=== PATIENT | female | born 1945 | race Caucasian/White ===

== ENCOUNTER 2024-09-14 20:36 | Observation (INO) | payer MEDICARE, SELFPAY ==
[2024-09-14 15:29] VITALS: BP 133/90
--- NOTE | 2024-09-14 16:12 | ED.CVA ---
History of Present Illness
General
Chief Complaint: CVA/TIA Symptoms
Source: patient
Exam Limitations: none
Time Seen by Provider: 09/14/24 16:02
Nursing documentation reviewed up to this point in time: agreed with
Onset of Stroke Symptoms
Onset of symptoms known: Yes
Date of onset of symptoms: 09/13/24
History of Present Illness
History of Present Illness:
79 -year-old female presents to the emergency department due to loss of vision in her left eye, with vision totally black for about 4 minutes. She was at a store, and went outside the vision gradually returned.
Past History
Past History
ED Past Medical History: Cancer (Breast cancer), HTN and Hypercholesterolemia
ED Past Surgical History: Other (Lumpectomy, breast reduction, oral surgery)
Social History
Tobacco: Non-smoker
Alcohol: None
Drug: None
Personal:
Review of Systems
Review of Systems
Allergies reviewed?: Yes
All Other Systems: Not applicable
Constitutional: Reports no symptoms
EENT: Reports other (Left eye vision loss)
Respiratory: Reports no symptoms
Cardiac: Reports no symptoms
ABD/GI: Reports no symptoms
: Reports no symptoms
Musculoskeletal: Reports no symptoms
Skin: Reports no symptoms
Neurological: Reports no symptoms
Endocrine: Reports no symptoms
Hematologic/Lymphatic: Reports no symptoms
Psychiatric: Reports no symptoms
Phy Exam
Physical Exam
Physical Exam:
Physical Exam
General: no apparent distress, not acutely ill
Neck: supple. no meningeal signs. normal posterior pharynx
Heart: s1/s2 regular rate and rhythm, no murmur. equal radial
pulses.
HEENT: Pupils equal round reactive to light, EOMI
Lungs: no acute respiratory distress. clear bilaterally
Abdomen: normal bowel sounds. not tender. no CVAT
Neuro: alert and oriented. no focal neurological deficits cranial nerves II through XII intact
Skin: no rash
Psychiatric: well kept. interactive and cooperative
Extremities: no edema. no calf tenderness. negative homans. good distal pulses
NIH Stroke Score
Level of Consciousness: 0 - Alert
LOC questions: 0-Answers both correctly
LOC Commands: 0-Performs both correctly
Best Gaze: 0-Normal
Visual Shah: 0=Normal, no visual loss
Facial palsy: 0=Normal, symmetrical
Motor - Right Arm: 0=No drift 10 seconds
Motor - Left Arm: 0=No drift 10 seconds
Motor - Right Le-No drift 5 seconds
Motor - Left Le-No drift 5 seconds
Limb Ataxia: 0-Absent
Sensation: 0-Normal
Best Language: 0-No aphasia
Dysarthria: 0-Normal
Extinction and Inattention: 0-No abnormality
Total Score:: 0
Alteplase Contraindication
Reasons for NON-Treatment with Thrombolytics: Rapid improvement
Lokesh Coma Scale
Eye Opening: Spontaneous
Verbal Response: Oriented
Motor Response: Obeys Commands
GCS Total Score: 15
Course
Orders/Labs/Results
Orders:
Orders
09/14/24 16:02
CT Head W/o Iv Contrast Urgent
Comment:
Reason For Exam: left eye vision changes
Cardiac Monitoring- Treatment ONCE
Pulse Ox/cont/shift [RESP] Stat
Quantity: 1
09/14/24 16:04
Electrocardiogram (*1) Stat
Reason for Study: Other
Other Reason for Exam: neuro symptoms
EKG- Treatment ONCE
IV Insert/Care/Rem.- Treatment PRN
09/14/24 16:27
Complete Blood Count/With Diff Urgent
Comprehensive Metabolic Panel Urgent
PTT Urgent
Prothrombin Time Urgent
Abnormal Lab Results
09/14/24
16:27
WBC 2.5 L 10^3/uL
(4.8-10.8)
RBC 3.76 L 10^6/uL
(4.20-5.40)
MCV 106.4 H fL
(81.0-99.0)
MCH 37.0 H pg
(27.0-31.0)
Plt Count 63 L 10^3/uL
(130-400)
Absolute Neuts (auto) 1.3 L 10^3/uL
(1.4-6.5)
Absolute Lymphs (auto) 0.9 L 10^3/uL
(1.2-3.4)
Chloride 112 H mmol/L
(98-107)
09/14/24 16:27
09/14/24 16:27
Vital Signs
Initial and Last Documented VS:
Initial Vital Signs
Temp Pulse Resp BP Pulse Ox
97.9 F 106 15 133/90 98
09/14/24 15:29 09/14/24 15:29 09/14/24 15:29 09/14/24 15:29 09/14/24 15:29
Last Documented Vital Signs
Temp Pulse Resp BP Pulse Ox
98.5 F 103 21 136/92 96
09/14/24 18:30 09/14/24 18:30 09/14/24 18:30 09/14/24 18:30 09/14/24 18:30
MDM/Problems Addressed
Differential Diagnosis Includes:
CVA, intracranial hemorrhage
MDM/Problems Addressed:
79-year-old female with amaurosis fugax, TIA. Patient took aspirin today. Admit to hospitalist for further workup. CT head no acute findings. No current neurologic deficits. TNK not indicated.
Chronic conditions affecting care: HTN
*Radiology
Radiology exam reviewed: radiology read reviewed (CT head no acute findings)
*Pulse Oximetry
Patient hypoxic: no
*EKG
Interpreted by ED Provider?: Yes
EKG Intrepretation Date: 09/14/24
EKG Intrepretation Time: 16:16
Interpretation: abnormal
Comparison EKG: no comparison EKG present
Heart Rate: 82
Rate: normal
Rhythm: sinus
Stumpy Point: normal axis
Interval: normal interval
QRS Pattern: left vent hypertrophy
Ischemia: no ischemia
*Hardware Installation Coordinator Interpretation
Rate: normal
Interpretation: normal
Heart Rate: 80
Rhythm: sinus
*Critical Care Note
Total Time (30-74mins, 75-104mins- exclusive of procedures): Not Applicable
Data Reviewed
Prescriptions/Medications Considered But Not Given:
TNK not indicated
Patient Management
Social determinants of health affecting care: Living situation and Strong social support
Discussion with other providers: Hospitalist
Escalation/DeEscalation of care consider admission/obs:
admit indicated
ED Attending Note
-
Portions of this chart may have been created with voice recognition software.� Occasional wrong word or��sound alike� substitutions may have occurred due to the inherent limitations of voice recognition software.
Discharge Plan
Departure
Patient Disposition: Admit
Date of Disposition: 09/14/24
Time of Disposition: 18:00
Admit to: Telemetry
Presentation/result/management discussed w/ accepting MD/DO: Hospitalist
Patient with high blood pressure during this ER visit?: No
Discharge Problem:
Amaurosis fugax of left eye, TIA (transient ischemic attack)
Prescriptions:
No Action
atorvastatin 40 mg tablet
40 mg PO DAILY
aspirin 81 mg Tablet,Delayed Release (Dr/Ec)
81 mg PO ONCE
pantoprazole 40 mg tablet,delayed release (DR/EC)
40 mg PO DAILY
letrozole 2.5 mg tablet
2.5 mg PO DAILY
valsartan 40 mg tablet
40 mg PO DAILY
Ibrance 100 mg tablet
100 mg PO USEASDIRECTD
Patient Comments:
09/14/2024: Take 100mg daily for 21 days on, 7 days off
Referrals:
Bethel Swan MD [Family Provider] -
Interventions
Interventions:
*Risk Screen - Suicide Last Done: 09/14/24 15:29
*General Assessment Last Done: 09/14/24 15:29
*Neglect/Abuse Screening Last Done: 09/14/24 15:29
*ED- Fall Risk Assessment Last Done: 09/14/24 16:28
*ED COVID-19 Vaccine History Last Done: 09/14/24 16:28
ED- Pulmonary Assessment Last Done: 09/14/24 16:28
ED- Neurological Assessment Last Done: 09/14/24 16:28
ED- Cardiac Assessment Last Done: 09/14/24 16:28
ED Swallowing Screen Last Done: 09/14/24 16:28
Discharge Date and Time
Print Language: HUNGARIAN
[2024-09-14 16:28] VITALS: BP 146/89; BMI 29.4
[2024-09-14 16:38] LABS: % Eosinophils 2.8 % (0-6); % Lymphocytes 34.6 % (20.5-51.1); % Monocytes 7.9 % (1.7-9.3); % Neutrophils 52.7 % (42.2-75.2); Absolute Basophils 0.1 10^3/uL (0-0.2); Absolute Eosinophils 0.1 10^3/uL (0-0.7); Absolute Lymphocytes 0.9 10^3/uL (1.2-3.4); Absolute Monocytes 0.2 10^3/uL (0.1-0.6); Absolute Neutrophils 1.3 10^3/uL (1.4-6.5); Hemoglobin 13.9 g/dL (12.0-16.0); Mean Corp Hgb Conc. 34.8 g/dL (33.0-37.0); Mean Corpuscular Volume 106.4 fL (81.0-99.0); Nucleated Red Blood Cells % 0 %; Red Blood Cell Count 3.76 10^6/uL (4.20-5.40); Red Cell Dist. Width 14.2 % (11.5-14.5); White Blood Cell Count 2.5 10^3/uL (4.8-10.8)
[2024-09-14 16:44] LABS: INR 1.03; PT 13.8 Sec (11.4-14.6)
[2024-09-14 16:45] LABS: APTT 27.1 Sec (23.4-35.0)
[2024-09-14 16:50] LABS: ALT (SGPT) 13 U/L (0-35); AST (SGOT) 19 U/L (14-36); Albumin 4.1 g/dl (3.5-5.0); Alkaline Phosphatase 64 U/L (38-126); Blood Urea Nitrogen 15 mg/dl (7-17); Carbon Dioxide 29 mmol/L (22-30); Chloride 112 mmol/L (98-107); Estimated Creatinine Clearance 50 ml/min; Glucose 92 mg/dl (70-99); Potassium 4.5 mmol/L (3.5-5.1); Sodium 143 mmol/L (135-145); Total Protein 6.7 g/dl (6.3-8.2); eGFR > 60.00
[2024-09-14 17:00] VITALS: BP 112/80
[2024-09-14 17:22] LABS: Mean Platelet Volume 9.9 fL (7.4-10.4); Platelet Count 63 10^3/uL (130-400)
[2024-09-14 18:30] VITALS: BP 136/92
--- NOTE | 2024-09-14 18:34 | HPS.HSE ---
Family Physician
-
Family Physician: Bethel Swan MD
Chief Complaint
-
Left eye blurred vision progressed to total blackness x 4 minutes
History of Present Illness
79-year-old female who states with visual changes in her left eye. Reports yesterday 09/13/2024 she was out at a [employer] store shopping when she noticed her left eye starting to become blurry then darker associated with some bright starburst lights
then totally black in color lasting approximately 4 minutes that she denies any associated pain in her eye headache or temporal pain. She reports she went and picked up her friend and took her to her primary care provider's office while at the same
primary care provider's office she brought up the incident and they advised her that she call her development officer. This morning instead of calling she drove over to her development officer around 1130 and had an eye exam where her left eye was dilated
she was told there were no findings within the eye itself she was advised to come to the ER for evaluation. She tells me that in April she had vertical diplopia that lasted a couple minutes and then on August 22, 2024 last month she had left eye
vertical diplopia lasting several minutes she was admitted to [facility] where she underwent CT a of the head and neck including an MRI of the brain which according to hospital reports were negative. She did bring copies of this to the
hospital 1 showing a incidental thyroid nodule other showing a T1 sclerotic lesion that required follow-up. During my exam she had an episode of painless shooting bright light across her left eye that lasted seconds and has gone away. She still
has dilation of her left pupil from ophthalmology office earlier today she denies headache, eye pain, fever, chills, chest pain, palpitations, cough, shortness of breath, abdominal pain, nausea, vomiting, diarrhea, urinary symptoms. She does state
that for the past year and a half she has been dealing with her who they thought had dementia which turned into metastatic cancer he did 6 weeks ago so she thinks perhaps maybe this could be related to stress.
She has past medical history of breast cancer status post lumpectomy/radiation 2006 on current letrozole and Ibrance ets to ribs and vertebrae follows at [facility], breast reduction 2007, HTN, HLD, chronic
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
Medical History
Past Medical History
Past Medical History: Reports Other
Additional Past Medical History:
breast cancer status post lumpectomy/radiation 2006 on current letrozole and Ibrance, mets to ribs and vertebrae follows at [facility]
breast reduction 2006
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
HTN
HLD,
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
Past Surgical History: Reports Other (Right breast lumpectomy 2005, bilateral breast reduction 2006)
Social History
Tobacco: Non-smoker
Alcohol: Occasional (Once a week)
Drug: None
Personal: (6 weeks ago)
Living: Alone
Employment: Retired
Family History
Family History: Other (Mother gallbladder cancer Father pneumonia patient is an only child)
Allergies / Home Medications
Allergies reflects when Allergies were last updated in [employer].
Home Medications with original date entered in [employer]
Allergy/Medication List:
Allergies
Allergy/AdvReac Type Severity Reaction Status Date / Time
codeine Allergy Mild Vomiting Verified 09/14/24 15:36
Home Medications
aspirin 81 mg tablet,delayed release 81 mg PO ONCE 09/14/24
atorvastatin 40 mg tablet 40 mg PO DAILY 09/14/24
letrozole 2.5 mg tablet 2.5 mg PO DAILY 09/14/24
palbociclib 100 mg tablet (Ibrance) 100 mg PO USEASDIRECTD 09/14/24
pantoprazole 40 mg tablet,delayed release 40 mg PO DAILY 09/14/24
valsartan 40 mg tablet 40 mg PO DAILY 09/14/24
Review of Systems
-
History Source: Patient and Family (Friend at bedside)
A 12 point ROS was completed and negative except as noted: Yes
Constitutional: Denies Fever or Chills
EENT: Reports Other (Left eye blurred vision progressed to dark starburst then totally back x 4 minutes resolved currently dilated 5 mm from Optho office); Denies Tearing, Sore Throat or Runny Nose
Respiratory: Denies Cough or Trouble Breathing
Cardiac: Denies Chest Pain, Palpitations or Syncope
Abdomen/GI: Denies Abdominal Pain, Nausea, Vomiting, Diarrhea, Constipated, Bloody Stools or Black Stools
: Denies Dysuria, Frequency, Flank Pain, Incontinence or Difficulty Voiding
Musculoskeletal: Denies Joint Pain, Joint Swelling or Edema
Skin: Denies Itching or Rash
Neurological: Reports Numbness (Chronic to left upper lip from prior bone biopsy, chronic left upper lip droop from biopsy); Denies Dizzy, Headache or Weakness
Endocrine: Reports No Symptoms
Hematologic/Lymphatic: Reports No Symptoms
Psych: Reports Calm
Physical Exam
Vital Signs
Vital Signs
Temp Pulse Resp BP Pulse Ox
98.5 F 103 21 136/92 96
09/14/24 18:30 09/14/24 18:30 09/14/24 18:30 09/14/24 18:30 09/14/24 18:30
Physical Exam
General: No Apparent Distress, Comfortable and Conversant; No Pain, Fever or Chills
HEENT: NormoCephalic, Anicteric, Moist mucous membranes, No Ptosis and Other (Left eye blurred vision progressed to dark starburst then totally back x 4 minutes resolved currently dilated 5 mm from Optho office,Chronic to left upper lip from prior
bone biopsy, chronic left upper lip droop from biopsy)
Respiratory: Clear; No Wheezes, Rales or Rhonchi
Cardiac: S1/S2 and Regular Rhythm; No Murmur, Rub, Gallop or Peripheral Edema
Breast: Deferred by me
GI: Soft, Non Tender, Non Distended, Normal Bowel Sounds and No Hepatosplenomegaly
Rectal: Deferred by Provider
Genito-urinary: Deferred by me
Musculoskeletal: No Clubbing, No Cyanosis and No Edema
Skin: Warm and Dry; No Rash
Neuro: AO x 3, Nonfocal/grossly intact, Cranial Nerves Intact, No Sensory Deficits and Other (Chronic to left upper lip from prior bone biopsy, chronic left upper lip droop from biopsy); No Slurred Speech, Facial Droop, Tremors or Sedated
Psych: Calm
Laboratory Results
-
09/14/24 16:27
09/14/24 16:
Laboratory Results
PT 13.8 Sec (11.4-14.6) 09/14/24 16:
INR 1.03 09/14/24 16:
APTT 27.1 Sec (23.4-35.0) 09/14/24 16:
Total Bilirubin 1.0 mg/dl (0.2-1.3) 09/14/24 16:27
AST 19 U/L (14-36) 09/14/24 16:27
ALT 13 U/L (0-35) 09/14/24 16:27
Alkaline Phosphatase 64 U/L (38-126) 09/14/24 16:27
Data Reviewed
-
CT Scan: Report Reviewed by me
Lab Data: Labs Reviewed by me
Impression/Plan
-
Impression/plan:
Observation telemetry
# Painless left eye visual loss concern for TIA
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
Had sed rate of 4 on 08/22/2024 [facility]
Had negative CTA head and neck including MRI brain on 08/22/2024
-Consult neurology
- Check lipid profile, HgbA1c
- Continue aspirin 81 mg daily, atorvastatin 40 mg p.o. daily
CTA brain and neck 08/22/2024 [facility]
1 negative CTA of the head neck
2. Noncalcified plaque in the distal aortic arch
3. Sclerotic focus in the anterior aspect of T1 vertebral body measuring 7 mm
MRI brain without contrast 08/23/2024 [facility]: Negative MRI of the brain no acute infarction
EKG: NSR 82 bpm, QTc 439 MS flattened/inverted T waves lead II, aVF, flattened T waves V3 V4 no previous EKGs
CT head without IV contrast: No evidence of acute intracranial abnormality
#Neutropenia, thrombocytopenia secondary to Ibrance
#History of Right sided breast cancer 2005 with lumpectomy/radiation mets to ribs and vertebrae follows at [facility]
#Breast reduction 2006
WBC 2.5, RBC 3.76, PLT 63 (WBC was 2.6, RBC 3.90, PLT 116 on 08/22/2024 from [facility]
-cont Ibrance
-Continue letrozole 2.5 mg daily
#History of incidental Sclerotic focus in the anterior aspect of T1 vertebral body measuring 7 mm-patient reports reported mets to vertebrae
- Recommend follow-up with oncology out pt
#Incidental subcentimeter left thyroid nodule found on CT 08/22/2024 [facility]
- Follow TSH
#HTN
BP 136/92
Continue valsartan 40 mg p.o. daily
#GERD
Continue Protonix 40 mg daily
DVT prophylaxis
SCDs
DNR per patient with friend at bedside patient's daughter Katherine is her POA
--- NOTE | 2024-09-14 19:27 | W.PN.UPDATE ---
Addendum entered and electronically signed by Valentin Ferrera MD 09/14/24 19:48:
HX stage IV Breast CA with mets to Ribs and spine
s/p lumpectomy 2005 , s/p XRT 2005 , Breast reduction 2006
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
- currently on chronic palbociclib
- on AUTOMATED MANUFACTURING INSTRUCTOR Letrozole
- f/u CBC
- OP F/U with P Oncologist Dr Mei ( [facility])
Original Note:
Update Note
Progress Note Update
This note serves as an addendum to the H&P by basting puller GRISELDA Ember ENRIQUEURGIS
HPI
79F Non smoker HX HTN, HLD , Breast CA seen at ER:
- painless lightening of Lt Eye
- transient loss of Lt eye vision about 4 minutes while she was at a store
- the vision gradually returned.
- 08/22/24 recurrent of Lt side diplopia went to hospital H & N CTA brain MRI had extensive stroke w/u
- HX diplopia in Apr 2024
- Denied any HX Ophthalmoplegic migraines or migraine with aura
- ER NIH score Zero
- Denied NASH
Vital Signs
Temp Pulse Resp BP Pulse Ox
98.5 F 103 21 136/92 96
09/14/24 18:30 09/14/24 18:30 09/14/24 18:30 09/14/24 18:30 09/14/24 18:30
PE
Gen: NAD, not toxic
HEENT: symmetric face , AMBER, no nysagmus , dilated Lt pupil ? s/p eye drops at [facility] [facility]
Neck: supple
Lungs: CTA
Cor: RRR S1 S2
Abdomen: soft and benign
CYBER SOFTWARE ENGINEER: AAO3 , NFND on my exam
MS: symmetric tone and strength
Psych: Normal mood and affect
Laboratory Tests
09/14/24
16:27
WBC 2.5 L
Hgb 13.9
MCV 106.4 H
Plt Count 63 L
INR 1.03
EKG
NORMAL SINUS RHYTHM
MINIMAL VOLTAGE CRITERIA FOR LVH, MAY BE NORMAL VARIANT ( R in aVL )
Cannot exclude INFERIOR INFARCT , AGE UNDETERMINED
cannot exclude ANTERIOR INFARCT , AGE UNDETERMINED
ABNORMAL ECG
NO PREVIOUS ECGS AVAILABLE
Confirmed by ANTONIA KAM MD, MK ([id number]) on 09/14/2024 5:33:[address] Head W/o Iv Contrast
- No evidence of acute intracranial abnormality.
NO PRIOR hospitalist admission:
ASSESSMENT & PLAN
Transient painless Lt monocular vision loss
- eval for TIA/CVA
- Seen recent NEG Brain MRI as of 08/22/24 at [facility]
- c/w AUTOMATED MANUFACTURING INSTRUCTOR ASA and hi intensity Atorvastatin
- Neuro consult
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
HX Breast CA s/p lumpectomy 2005 , s/p XRT 2005 , Breast reduction 2006
- currently on chronic palbociclib
- on AUTOMATED MANUFACTURING INSTRUCTOR Letrozole
- OP F/U with P oncologist at [facility]
Incidental LT Thyroid nodule
Sclerotic focus of T1 Vert body per CTA Brain and neck on 08/22 at [facility]
- OP f/u P oncologist
DVT Px: SCD
DNR
OBS TLM
[2024-09-14 22:01] VITALS: BP 146/88
[2024-09-14 22:02] VITALS: BMI 29.6
[2024-09-14] MEDS: ASPIR LOW (ENTERIC COATED) 81 MG PO (22:42)
--- NOTE | 2024-09-14 23:40 | PTCARENOTE ---
Pt admitted to floor from ED. AAOx3. VSS. NSR on the monitor. Pt reports blurry vision with 'shadows' L eye and pupil dilated from earlier opthamology appt. Neuro exam as documented. Oriented to room and call pelaez within reach.
[2024-09-15 03:10] VITALS: BP 136/82
[2024-09-15 07:23] VITALS: BP 139/93
[2024-09-15] MEDS: NON-FORMULARY ITEM 100 MG PO (07:25)
[2024-09-15] MEDS: DIOVAN 40 MG PO (07:25)
[2024-09-15] MEDS: PROTONIX 40 MG PO (07:25)
[2024-09-15] MEDS: NON-FORMULARY ITEM 1 UNIT PO (07:25)
[2024-09-15] MEDS: LIPITOR 40 MG PO (07:25)
[2024-09-15 07:45] LABS: ALT (SGPT) 13 U/L (0-35); AST (SGOT) 19 U/L (14-36); Albumin 3.9 g/dl (3.5-5.0); Alkaline Phosphatase 68 U/L (38-126); Blood Urea Nitrogen 17 mg/dl (7-17); Calcium 9.7 mg/dl (8.4-10.2); Carbon Dioxide 28 mmol/L (22-30); Chloride 112 mmol/L (98-107); Estimated Creatinine Clearance 50 ml/min; Glucose 118 mg/dl (70-99); HDL Cholesterol 54 mg/dl; LDL Cholesterol, Calculated 91 mg/dl; Potassium 4.7 mmol/L (3.5-5.1); Sodium 143 mmol/L (135-145); Total Bilirubin 0.8 mg/dl (0.2-1.3); Total Cholesterol 160 mg/dl (50-199); Total Protein 6.4 g/dl (6.3-8.2); Triglyceride 79 mg/dl (10-149); Very Low Density Lipoprotein 15 mg/dl (0-30); eGFR > 60.00
[2024-09-15 07:55] LABS: Hematocrit 40.2 % (37.0-47.0); Hemoglobin 14.1 g/dL (12.0-16.0); Mean Corp Hgb Conc. 35.1 g/dL (33.0-37.0); Mean Corpuscular Hgb 37.3 pg (27.0-31.0); Mean Corpuscular Volume 106.3 fL (81.0-99.0); Mean Platelet Volume 10.2 fL (7.4-10.4); Platelet Count 68 10^3/uL (130-400); Red Blood Cell Count 3.78 10^6/uL (4.20-5.40); Red Cell Dist. Width 14.1 % (11.5-14.5); White Blood Cell Count 1.9 10^3/uL (4.8-10.8)
[2024-09-15] MEDS: VALIUM 5 MG PO (08:48)
[2024-09-15 09:01] LABS: % Basophils 2.7 % (0-2); % Eosinophils 3.7 % (0-6); % Lymphocytes 38.3 % (20.5-51.1); % Monocytes 6.4 % (1.7-9.3); % Neutrophils 48.9 % (42.2-75.2); Absolute Basophils 0.1 10^3/uL (0-0.2); Absolute Eosinophils 0.1 10^3/uL (0-0.7); Absolute Lymphocytes 0.7 10^3/uL (1.2-3.4); Absolute Monocytes 0.1 10^3/uL (0.1-0.6); Absolute Neutrophils 0.9 10^3/uL (1.4-6.5); Nucleated Red Blood Cells % 0 %
--- NOTE | 2024-09-15 09:15 | PTOTSP ---
Speech Pathology
Clinical Swallow Evaluation
79F with admission for CVA/TIA workup p/w a functional oropharyngeal swallow. No overt s/s of aspiration or penetration demonstrated during PO trials this date. Speech pathology to follow up only if MRI is positive re: potential concerns for silent
aspiration.
Recommend:
1. Continue with regular textures (IDDSI 7), thin liquids (IDDSI 0)
2. Meds as best tolerated
3. Reflux precautions re: GERD hx
4. Speech pathology to follow up only if MRI is positive
[2024-09-15 11:07] VITALS: BP 104/72
[2024-09-15 11:35] VITALS: BP 104/72; PULSE 78
--- NOTE | 2024-09-15 12:28 | W.PN.HOSP.TC ---
Addendum entered and electronically signed by Omkar Guillen MD 09/16/24 12:19:
Late addendum
Discussed with neurology on 09/15/2024 and symptoms consistent with amaurosis fugax. Recommended to continue with aspirin and Plavix for 21 days and okay for discharge home
More than 30 minutes spent in discharge including
Final examination of the patient
Summarizing hospital stay
Instructions for continuing care to all relevant caregivers
Preparation of discharge records, prescriptions, and referral forms
Total time spent (in minutes): 48
Original Note:
Today's Communication/Plan
-
Await MRI brain results
Neurology input
PT/OT
Assessment / Plan
Assessment / Plan
#Painless left eye visual loss concern for low likelihood of TIA versus ocular migraine
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
Had sed rate of 4 on 08/22/2024 [facility]
Had negative CTA head and neck including MRI brain on 08/22/2024
Consult neurology
LDL 91.
Continue aspirin 81 mg daily, atorvastatin 40 mg p.o. daily
CTA brain and neck 08/22/2024 [facility] 1 negative CTA of the head neck 2. Noncalcified plaque in the distal aortic arch 3. Sclerotic focus in the anterior aspect of T1 vertebral body measuring 7 mm
MRI brain without contrast 08/23/2024 [facility]: Negative MRI of the brain no acute infarction
CT head without IV contrast: No evidence of acute intracranial abnormality
No events were noted on telemetry. Remains in normal sinus rhythm.
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
#History of Right sided breast cancer 2005 with lumpectomy/radiation mets to ribs and vertebrae follows at [facility]
#Breast reduction 2006
cont Ibrance
Continue letrozole 2.5 mg daily
#History of incidental Sclerotic focus in the anterior aspect of T1 vertebral body measuring 7 mm-patient reports reported mets to vertebrae
Recommend follow-up with oncology out pt
#Incidental subcentimeter left thyroid nodule found on CT 08/22/2024 [facility]
Outpatient follow-up with PCP
#HTN primary
Continue valsartan 40 mg p.o. daily
Blood pressure controlled
#GERD
Continue Protonix 40 mg daily
DVT prophylaxis
SCDs
DNR .
Discussed with family member at bedside
PT/OT pending
Anticipated Discharge: Within 24 hours
Subjective/Interval History
-
Date of Service: September 15, 2024
Patient states some mild left eye blurriness but no complete vision loss
States her vision is significantly improved since event on
Denies any other focal weakness
Objective Data
-
Labs:
Laboratory Results
09/15/24
06:56
WBC 1.9 L*
Hgb 14.1
Hct 40.2
Plt Count 68 L
Sodium 143
Potassium 4.7
Chloride 112 H
Carbon Dioxide 28
BUN 17
Creatinine 0.9
Glucose 118 H
Calcium 9.7
Total Bilirubin 0.8
AST 19
ALT 13
Alkaline Phosphatase 68
Vital Signs:
Vital Signs
Temp Pulse Resp BP Pulse Ox
97.9 F 78 18 104/72 93
09/15/24 11:07 09/15/24 11:07 09/15/24 11:07 09/15/24 11:07 09/15/24 11:07
I&O
09/14/24 09/15/24 09/16/24
06:59 06:59 06:59
Intake Total 120 / 120
Balance 120 / 120
Physical Exam
-
General: Well Developed, No Apparent Distress and Conversant
HEENT: Normocephalic, Atraumatic and Moist Mucous Membranes
Respiratory: Clear to Auscultation
Cardiac: Regular Rhythm and S1/S2; Negative Murmur, Rub or Gallop
GI: Soft, Nontender, Nondistended and Normal Bowel Sounds; Negative Organomegaly
Rectal: Deferred by Provider
Musculoskeletal: No Clubbing, No Cyanosis and No Edema
Skin: Negative Rash
Neuro: Awake, Alert, Oriented, AO x 3, No Motor Deficits and Nonfocal/Grossly Intact
Psych: Calm
[2024-09-15 15:40] VITALS: BP 147/75
--- NOTE | 2024-09-15 16:15 | CM ---
vault manager reviewed patient's chart and patient was admitted under OBS, OBS letter provided to patient, patient has been cleared for discharge today, patient lives alone is independent with adl's and ambulation.
PCP: Bethel Swan
Pharmacy: [facility]
Plan; Home no needs.
--- NOTE | 2024-09-15 16:41 | W.DCSUMMARY ---
Discharge Summary
Discharge Data
Date of Admission: 09/14/24
Date of Discharge: 09/15/24
-
Pending Results: No
Hospital Course
79-year-old female past medical history of breast cancer with metastasis, hypertension, GERD who is presenting with complaints of temporary left eye vision loss. Patient had similar incident and was evaluated outside hospital she underwent complete
workup. Patient upon admission underwent CT of the head which was negative for acute pathology. Patient with MRI of the brain which is negative for acute stroke. Patient was eval by neurology. Patient was recommended to start patient on aspirin
with additional 21 days of Plavix. Patient also says outpatient she was eval by ophthalmology. Patient also has cataract for which she needs to undergo surgery. Patient stated her vision is blurry but no longer vision loss on the left side. per
neurology patient symptoms with amaurosis fugax. Patient was eval by PT and was able discharged home.
Discharge Plan
-
Patient Disposition: Home (Routine Discharge)
Discharge Diagnosis/Procedures: Painless left eye temporary visual loss likely due to amaurosis fugax/ TIA
Condition: Fair
Diet: Low Cholesterol
Activity: As tolerated
Driving Restrictions: Not until seen by your Dr
Blood Work: cbc in 1 week via primary doctor.
Activity Restrictions/Additional Instructions:
Take aspirin and Plavix together for 21 days then stop plavix and continue aspirin only.
Referrals:
Bethel Swan MD [Family Provider] - in less than 1 week
Prescriptions:
New
clopidogrel [Plavix] 75 mg tablet
75 mg PO DAILY Qty: 21 0RF
Continued
atorvastatin 40 mg tablet
40 mg PO DAILY
pantoprazole 40 mg tablet,delayed release (/EC)
40 mg PO DAILY
letrozole 2.5 mg tablet
2.5 mg PO DAILY
valsartan 40 mg tablet
40 mg PO DAILY
Ibrance 100 mg tablet
100 mg PO USEASDIRECTD
Patient Comments:
09/14/2024: Take 100mg daily for 21 days on, 7 days off
Changed
aspirin 81 mg Tablet,Delayed Release (Dr/Ec)
81 mg PO DAILY Qty: 30 0RF
Discharge Orders:
Discharge Patient (As Directed); Ordered 09/15/24
Ordered By: Omkar Guillen
Discharge Date and Time
Discharge Date/Time: 09/15/24 17:19
Print Language: MOSOTHO
--- NOTE | 2024-09-15 20:04 | CON.NEURO ---
Addendum entered and electronically signed by Wu Luna MD 09/15/24 20:13:
Exam:
AAOx3, speech clear, language intact
VFF, EOMI, face symmetric
full strength b/l UE/LE no drift
sensation intact to touch/pin
FNF coordination intact
Original Note:
Neuro Assessment/Plan
Assessment
brain MRI w/o contrast imgs and rept rev'd, mild microvascular changes, no evidence for acute stroke
I agree with diagnosis of amaurosis fugax which is most often caused by ipsilateral carotid stenosis. As she had recent carotid imaging, no need to repeat
8 episodes of vertigo/diplopia, probably a simple partial seizure as it happens the same way each time; would not treat unless frequent/bothersome
Plan
continue aspirin 81, Lipitor 40
21 days of Plavix
D/c home
Consultation
Order
Date of Consultation: 09/15/24
Requesting Provider: Valentin Ferrera
Reason for Consult: amarosis fugax
Subjective/Objective
Subjective Data
Date of Service: September 15, 2024
from h&p:
79-year-old female who states with visual changes in her left eye. Reports yesterday 09/13/2024 she was out at a [employer] store shopping when she noticed her left eye starting to become blurry then darker associated with some bright starburst lights
then totally black in color lasting approximately 4 minutes that she denies any associated pain in her eye headache or temporal pain. She reports she went and picked up her friend and took her to her primary care provider's office while at the same
primary care provider's office she brought up the incident and they advised her that she call her school plant consultant. This morning instead of calling she drove over to her school plant consultant around 1130 and had an eye exam where her left eye was dilated
she was told there were no findings within the eye itself she was advised to come to the ER for evaluation. She tells me that in April she had vertical diplopia that lasted a couple minutes and then on August 22, 2024 last month she had left eye
vertical diplopia lasting several minutes she was admitted to [facility] where she underwent CT a of the head and neck including an MRI of the brain which according to hospital reports were negative. She did bring copies of this to the
hospital 1 showing a incidental thyroid nodule other showing a T1 sclerotic lesion that required follow-up. During my exam she had an episode of painless shooting bright light across her left eye that lasted seconds and has gone away. She still
has dilation of her left pupil from ophthalmology office earlier today she denies headache, eye pain, fever, chills, chest pain, palpitations, cough, shortness of breath, abdominal pain, nausea, vomiting, diarrhea, urinary symptoms. She does state
that for the past year and a half she has been dealing with her who they thought had dementia which turned into metastatic cancer he did 6 weeks ago so she thinks perhaps maybe this could be related to stress.
She has past medical history of breast cancer status post lumpectomy/radiation 2006 on current letrozole and Ibrance ets to ribs and vertebrae follows at [facility] [place], breast reduction 2007, HTN, HLD, chronic
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
to me, patient reports left eye blurry vision, she looked up and the top half of the field was black, with some white specks, and then she fully lost vision in her right eye ~4 minutes. as the vision returned, she got back the lateral part of the
field first in an irregular shape. entire event lasted ~6 minutes. painless vision loss.
also reports that since April, having episodes of vertical diplopia with vertigo, lasting up to 15 minutes; happens the same way each time, 8 episodes
I reviewed notes from [facility] from 08/22/24 showing normal MRI brain and normal CTA head/neck
Objective Data
Vital Signs
Temp Pulse Resp BP Pulse Ox
36.1 C 84 18 147/75 96
09/15/24 15:40 09/15/24 15:40 09/15/24 15:40 09/15/24 15:40 09/15/24 15:40
Lab Results
09/15/24 06:56
09/15/24 06:56
PT 13.8 Sec (11.4-14.6) 09/14/24 16:27
INR 1.03 09/14/24 16:27
APTT 27.1 Sec (23.4-35.0) 09/14/24 16:27
Sodium 143 mmol/L (135-145) 09/15/24 06:56
Potassium 4.7 mmol/L (3.5-5.1) 09/15/24 06:56
BUN 17 mg/dl (7-17) 09/15/24 06:56
Glucose 118 mg/dl (70-99) H 09/15/24 06:56
Calcium 9.7 mg/dl (8.4-10.2) 09/15/24 06:56
LDL Cholesterol, Calc 91 mg/dl 09/15/24 06:56
Patient Allergies
codeine Allergy (Mild, Verified 09/14/24 15:36)
Vomiting
Medications
-
Home Medications
�Medication �Instructions �Recorded
atorvastatin 40 mg tablet 40 mg PO DAILY 09/14/24
letrozole 2.5 mg tablet 2.5 mg PO DAILY 09/14/24
palbociclib 100 mg tablet (Ibrance) 100 mg PO USEASDIRECTD 09/14/24
pantoprazole 40 mg tablet,delayed 40 mg PO DAILY 09/14/24
release
valsartan 40 mg tablet 40 mg PO DAILY 09/14/24
aspirin 81 mg tablet,delayed 81 mg PO DAILY #30 tabs 09/15/24
release
clopidogrel 75 mg tablet (Plavix) 75 mg PO DAILY #21 tabs 09/15/24
== END 2024-09-15 17:19 | disposition home or self-care (01) ==
LOC: 4 WEST ACU 20:36
PROVIDERS: Clinical Nurse Specialist Family Health; ADMITTING PHYSICIAN Internal Medicine; ATTENDING PHYSICIAN Hospitalist; CONSULT PHYSICIAN Psychiatry & Neurology Clinical Neurophysiology; EMERGENCY PHYSICIAN Emergency Medicine; FAMILY PHYSICIAN Internal Medicine
DX: G45.3 Amaurosis fugax (principal); R29.818 Other symptoms and signs involving the nervous system; Z79.82 Long term (current) use of aspirin; Z85.3 Personal history of malignant neoplasm of breast; D70.9 Neutropenia, unspecified; C79.51 Secondary malignant neoplasm of bone; D69.59 Other secondary thrombocytopenia; Z79.811 Long term (current) use of aromatase inhibitors; E04.1 Nontoxic single thyroid nodule; I10 Essential (primary) hypertension; K21.9 Gastro-esophageal reflux disease without esophagitis; Z79.899 Other long term (current) drug therapy; Z66 Do not resuscitate; H53.2 Diplopia; R42 Dizziness and giddiness
CPT/HCPCS: 70450; 70551; 80053; 80061; 85025; 85610; 85730; 92610; 93005; 97162; 99285